=== PATIENT | male | born 1955 | race African-American/Black ===

== ENCOUNTER 2020-09-20 21:27 | Emergency (ER) | payer MEDICAID, OTHER ==
[~2020-09-20] VITALS: Ht 170.2 cm; Wt 82.0 kg
[2020-09-20 22:57] LABS: BASOPHILS % 0.2 % (0.0-2.0); EOSINOPHILS % 1.2 % (0.0-5.0); HEMATOCRIT. 40.8 % (42.0-52.0); MEAN CORPUSCULAR HEMOGLOBIN 31.3 pg (28.0-32.0); MEAN CORPUSCULAR VOLUME 91.2 fL (80.0-94.0); MEAN PLATELET VOLUME 9.1 fl (7.4-10.4); MONOCYTES % 14.1 % (2.0-8.0); NEUTROPHILS % 52.5 % (40.0-76.0); PLATELET 154 x1000/uL (130-400); RED BLOOD CELL COUNT 4.47 mill/uL (4.7-6.1); RED CELL DISTRIBUTION WIDTH 12.6 % (11.6-14.6)
[2020-09-20 23:02] LABS: CHLORIDE 103 mEq/L (98-107)
[2020-09-20] MEDS ORDERED: POTASSIUM CHLORIDE 20MEQ TABLET SR PO ONE (23:30)
[2020-09-20] MEDS ORDERED: AMOXICILLIN 500 MG CAPSULE PO ONE (23:30)
[2020-09-21] MEDS ORDERED: AMOX-494 MT (00:14)
[2020-09-21 00:40] VITALS: BP 134/76
== END 2020-09-21 00:50 | disposition home or self-care (01) ==
LOC: ER 21:27
DX: J18.9 Pneumonia, unspecified organism (principal); E87.6 Hypokalemia; I10 Essential (primary) hypertension; E78.00 Pure hypercholesterolemia, unspecified; J44.9 Chronic obstructive pulmonary disease, unspecified; Z20.828 Contact with and (suspected) exposure to other viral communicable diseases; Z98.1 Arthrodesis status
CPT/HCPCS: 36415; 71045; 80053; 83880; 84484; 85025; 93005; 99285

== ENCOUNTER 2022-03-14 15:09 | Emergency (ER) | payer MEDICAID, OTHER ==
[~2022-03-14] VITALS: Ht 170.2 cm; Wt 95.0 kg
[~2022-03-14 15:09] MED LIST: AMOX-494 MT
[2022-03-14] MEDS ORDERED: HYDROCODONE/ACETAMINOPHEN 10/325MG TABLET PO ONE (15:45)
[2022-03-14] MEDS ORDERED: IBUPROFEN 600MG TABLET PO ONE (15:45)
[2022-03-14 15:52] VITALS: BP 133/80
[2022-03-14] MEDS ORDERED: CYCLOBENZAPRINE 10MG TABLET PO ONE (16:00)
[2022-03-14] MEDS ORDERED: CYCL10TA21 MT (18:07)
[2022-03-14] MEDS ORDERED: HYDR-4001 MT (18:07)
== END 2022-03-14 18:45 | disposition home or self-care (01) ==
LOC: ER 15:09
DX: M54.50 Low back pain, unspecified (principal); E78.00 Pure hypercholesterolemia, unspecified; I10 Essential (primary) hypertension; J44.9 Chronic obstructive pulmonary disease, unspecified; W18.30XA Fall on same level, unspecified, initial encounter; Y93.89 Activity, other specified; Y92.89 Other specified places as the place of occurrence of the external cause
CPT/HCPCS: 72131; 99284